=== PATIENT | male | born 1950 | race Caucasian/White ===

== ENCOUNTER 2022-05-14 09:18 | Observation (INO) | payer BC, OTHER ==
[2022-05-14 09:29] VITALS: BMI 26.5
[2022-05-14 13:33] LABS: EOS % 1.4 % (0-4.5); HEMATOCRIT 45.5 % (35.4-49); HEMOGLOBIN 15.3 GM/dL (11.7-16.9); LYMPH % 21.9 % (8-40); MCH 30.7 pg (25.7-33.7); MCHC 33.5 g/dl (32.0-35.9); MEAN CELL VOLUME 91.6 fl (80-96); MEAN PLT VOLUME 7.5 fl (7.5-11.1); MONO % 5.4 % (3.8-10.2); NEUT % 70.3 % (42.8-82.8); PLATELET COUNT 187 10^3/uL (134-434); RBC 4.97 M/mm3 (4.00-5.60); RDW 14.1 % (11.9-15.9); WHITE BLOOD COUNT 5.9 K/mm3 (4.0-10.0)
[2022-05-14 14:00] LABS: ALBUMIN 4.1 g/dl (3.4-5.0); CALCIUM 9.2 mg/dL (8.5-10.1)
[2022-05-14 14:01] LABS: BLOOD UREA NITROGEN 23.4 mg/dL (7-18)
[2022-05-14 14:03] LABS: CREATININE 0.9 mg/dL (0.55-1.3)
[2022-05-14 14:05] LABS: BILIRUBIN,TOTAL 0.5 mg/dL (0.2-1); TOT PROT 6.8 g/dl (6.4-8.2)
[2022-05-14] MEDS ORDERED: ASPIRIN 81 MG CHEWABLE TABLETS ONE (14:20)
[2022-05-14] MEDS ORDERED: ACETAMINOPHEN 500 MG TABLET (FP) PO ONE (14:38)
[2022-05-14] MEDS ORDERED: ACETAMINOPHEN 500 MG TABLET (FP) ONE (14:41)
[2022-05-14] MEDS ORDERED: ACETAMINOPHEN 325 MG TABLET (FP) PO PRN (17:01)
[2022-05-14] MEDS ORDERED: ONDANSETRON 4 MG/2 ML VIAL IVPUSH PRN (17:02)
[2022-05-14] MEDS ORDERED: ATORVASTATIN CA 20 MG TABLET (FP) PO SCH (22:30)
[2022-05-15] MEDS ORDERED: ATORVASTATIN CA 20 MG TABLET (FP) ONE (00:44)
[2022-05-15 06:43] LABS: HEMATOCRIT 44.6 % (35.4-49); MCH 30.6 pg (25.7-33.7); MCHC 33.7 g/dl (32.0-35.9); MEAN PLT VOLUME 7.4 fl (7.5-11.1); PLATELET COUNT 182 10^3/uL (134-434); RDW 13.7 % (11.9-15.9); WHITE BLOOD COUNT 5.6 K/mm3 (4.0-10.0)
[2022-05-15 07:01] LABS: CALCIUM 8.9 mg/dL (8.5-10.1)
[2022-05-15 07:02] LABS: BLOOD UREA NITROGEN 24.8 mg/dL (7-18); MAGNESIUM 2.1 mg/dL (1.8-2.4)
[2022-05-15 07:05] LABS: CREATININE 0.9 mg/dL (0.55-1.3); PHOSPHOROUS 3.6 mg/dL (2.5-4.9)
[2022-05-15 07:07] VITALS: TEMP 97.5
[2022-05-15] MEDS ORDERED: ACETAMINOPHEN 325 MG TABLET (FP) ONE (08:20)
[2022-05-15] MEDS ORDERED: ASPIRIN COATED 81 MG TABLET.EC PO SCH (10:00)
[2022-05-15] MEDS ORDERED: ENOXAPARIN NA (PORCINE) 40 MG/0.4 ML DISP.SYRIN SQ SCH (10:00)
[2022-05-15] MEDS ORDERED: ESCITALOPRAM OXALATE 20 MG TABLET PO SCH (10:00)
[2022-05-15] MEDS ORDERED: ASPIRIN COATED 81 MG TABLET.EC ONE (10:51)
[2022-05-15] MEDS ORDERED: ENOXAPARIN NA (PORCINE) 40 MG/0.4 ML DISP.SYRIN SQ ONE (10:51)
[2022-05-15 11:03] VITALS: RESP 20
[2022-05-15 14:29] VITALS: BP 113/61; PULSE 66
== END 2022-05-15 14:30 | disposition home or self-care (01) ==
LOC: JER 09:18 → JERBED 16:09
PROVIDERS: ADMIT Internal Medicine; ATTEND Internal Medicine
PROC: 3E023GC Introduction of Other Therapeutic Substance into Muscle, Percutaneous Approach (ICD-10-PCS; principal; 2022-05-14)
DX: F41.8 Other specified anxiety disorders (principal); Z85.46 Personal history of malignant neoplasm of prostate; Z96.651 Presence of right artificial knee joint; Z29.8 Encounter for other specified prophylactic measures; Z86.711 Personal history of pulmonary embolism
CPT/HCPCS: 36415; 71046-TC-FY; 71275-TC; 80048; 80053; 80061; 83036; 83735; 84100; 84439; 84443; 84484; 85025; 85027; 85379; 93005; 93010; 93306-TC; 93351; 93970-TC; 96372; 99285-25; C9803-CS; G0378; Q9967; U0003; U0005